=== PATIENT | female | born 1990 | race African-American/Black ===

== ENCOUNTER 2022-05-22 15:14 | Outpatient (CLI) | payer BC, MEDICAID, SELFPAY ==
[2022-05-22 15:44] LABS: Basophils Percent Auto 0.4 % (0.2-1.2); Eosinophils Absolute Auto 0.1 K/mm3 (0-0.3); Eosinophils Percent Auto 1.6 % (0-4.4); Hematocrit 39.1 % (37.0-47.0); Hemoglobin 12.6 g/dL (12.0-15.0); Immature Granulocyte Absolute 0.02 K/mm3 (0.00-0.031); Immature Granulocyte Percent A 0.3 % (0-0.5); Lymphocytes Absolute Auto 2.48 K/mm3 (0.9-3.2); Lymphocytes Percent Auto 33.3 % (18.3-44.2); Mean Corpuscular HGB Conc 32.2 g/dl (32-36); Mean Corpuscular Hemoglobin 28.9 pg (26-34); Mean Corpuscular Volume 89.7 fl (80-100); Mean Platelet Volume 11.3 fl (7.4-10.4); Monocytes Absolute Auto 0.5 K/mm3 (0.1-0.6); Monocytes Percent Auto 6.3 % (2.6-8.5); Neutrophils Absolute Auto 4.3 K/mm3 (1.3-6.7); Neutrophils Percent Auto 58.1 % (45.5-73.1); Platelet Count Result 313 k/mm3 (150-375); Red Blood Count 4.36 M/mm3 (4.2-5.4); White Blood Count 7.5 K/mm3 (4.5-10.0)
[2022-05-22 15:58] LABS: Alanine Aminotransferase 29 U/L (6-35); Albumin Level 4.2 g/dL (3.5-5.1); Alkaline Phosphatase 91 U/L (38-126); Anion Gap 13 mmol/L (8-16); Aspartate Amino Transferase 24 U/L (14-36); Bilirubin,Total 0.3 mg/dL (0.2-1.3); Blood Urea Nitrogen 9 mg/dL (7-17); Carbon Dioxide 22 mmol/L (22-30); Chloride 102 mmol/L (98-107); Estimated Glomerular Filt Rate > 60; Glucose 85 mg/dL (65-110); Potassium 3.6 mmol/L (3.4-5.0); Sodium 137 mmol/L (137-145); Uric Acid 2.3 mg/dL (2.5-7.5)
[2022-05-22 16:08] LABS: Creatinine Urine 97.1 mg/dL
[2022-05-22 16:35] LABS: HIV 1/2 Ab P24 Ag Result Negative (Negative)
[2022-05-22 16:47] LABS: Hepatitis B Surface Antigen Negative (Negative); Rubella IgG Antibody 84.9 IU/ML
[2022-05-22 16:49] LABS: Total Protein Urine Random < 5 mg/dL
[2022-05-23 08:57] LABS: Rapid Plasma Reagin Non-Reactive (NonReactive)
== END 2022-05-22 15:15 | disposition home or self-care (01) ==
LOC: ANHLAB 15:19
PROVIDERS: PCP Emergency Medicine; Visit Provider Student in an Organized Health Care Education/Training Program
DX: N94.89 Other specified conditions associated with female genital organs and menstrual cycle (principal); E66.01 Morbid (severe) obesity due to excess calories; Z98.84 Bariatric surgery status; Z87.59 Personal history of other complications of pregnancy, childbirth and the puerperium
CPT/HCPCS: 36415; 80053; 81050; 82570; 83036; 84156; 84550; 84702; 85025; 86592; 86644; 86703; 86747; 86762; 86787; 86850; 86900; 86901; 87086; 87088; 87340; G0432

== ENCOUNTER 2022-06-19 17:42 | Emergency (ER) | payer BC, MEDICAID, SELFPAY ==
[2022-06-19 17:49] VITALS: BP 138/73; PULSE 76; RESP 18; TEMP 36.7; O2SAT 100
[2022-06-19 19:17] LABS: Basophils Percent Auto 0.2 % (0.2-1.2); Eosinophils Absolute Auto 0.2 K/mm3 (0-0.3); Eosinophils Percent Auto 2.3 % (0-4.4); Hematocrit 36.6 % (37.0-47.0); Hemoglobin 12.2 g/dL (12.0-15.0); Immature Granulocyte Absolute 0.02 K/mm3 (0.00-0.031); Immature Granulocyte Percent A 0.2 % (0-0.5); Lymphocytes Percent Auto 32.6 % (18.3-44.2); Mean Corpuscular HGB Conc 33.3 g/dl (32-36); Mean Corpuscular Hemoglobin 29.3 pg (26-34); Mean Corpuscular Volume 87.8 fl (80-100); Mean Platelet Volume 11.1 fl (7.4-10.4); Monocytes Absolute Auto 0.6 K/mm3 (0.1-0.6); Monocytes Percent Auto 6.7 % (2.6-8.5); Neutrophils Absolute Auto 5.3 K/mm3 (1.3-6.7); Platelet Count Result 272 k/mm3 (150-375); Red Blood Count 4.17 M/mm3 (4.2-5.4); Red Cell Distribution Width 12.9 % (11.5-14.5); White Blood Count 9.2 K/mm3 (4.5-10.0)
--- NOTE | 2022-06-19 21:40 | ED.PREGNANCY ---
HPI - General Chief complaint: Vaginal Bleeding Stated complaint: 13 weeks preg, vag bleeding Time Seen by Provider: 06/19/22 21:19 History of Present Illness HPI Narrative: This is a 32-year-old female G4, P3 with past medical history of preeclampsia, presenting to the emergency department with vaginal bleeding beginning this afternoon. The patient states she went to use the restroom and noted painless vaginal bleeding. She denies passage of clots, abdominal pain, fevers or chills. She states she has not had bleeding with pregnancies before. She has no other complaints today. Related Data Home Medications Medication Instructions Recorded Confirmed ferrous sulfate 325 mg (65 mg 325 mg PO DAILY 05/22/22 iron) tablet mecobalamin (vitamin B12) 1,000 1,000 mcg PO DAILY 05/22/22 mcg chewable tablet omeprazole 20 mg capsule,delayed 20 mg PO DAILY 05/22/22 release valacyclovir 500 mg tablet 500 mg PO DAILY 05/22/22 Allergies Allergy/AdvReac Type Severity Reaction Status Date / Time No Known Allergies Allergy Verified 05/22/22 14:09 Review of Systems Review of Systems: CONSTITUTIONAL: Denies fever, chills, or sweats. EYES: Denies visual changes, redness, or discharge. ENT: Denies rhinorrhea, congestion, sore throat, or otalgia. CARDIOVASCULAR: Denies chest pain, palpitations, or edema. RESPIRATORY: Denies cough or dyspnea. GASTROINTESTINAL: Denies abdominal pain, nausea, vomiting, or diarrhea. GENITOURINARY: Painless vaginal bleeding denies dysuria or hematuria. SKIN: Denies rash or itching. MUSCULOSKELETAL: Denies back pain, joint pain, or myalgia. NEUROLOGIC: Denies headache, numbness, dizziness, or weakness. PSYCHIATRIC: Denies anxiety or depression. [facility] Past Medical History Medical History Kidney stones surgery to remove Suppression of menstruation Surgical History Surgical History Delivery by section x 3 History of gastric bypass (~07/2021) History of gynecological procedure mirena iud removal History of lung surgery x 3 lung punctured during kidney stone removal surgery Family History Family History Other Unknown family medical history Social History Social History Smoking status: Never smoker Alcohol intake: never Substance use: never Substance use type: does not use Additional living arrangements comments: engaged Additional occupation/education comments: [employer] supervisor Gender identity (if verbalized by the patient): Female Sexual Orientation (if Verbalized by the Patient): Straight or Heterosexual Exam Narrative: GENERAL: Well-appearing, well-nourished, and in no acute distress. HEAD: Normocephalic, atraumatic. EYES: PERRLA and EOMI. ENT: Nares clear, no rhinorrhea or epistaxis. Mucous membranes moist. Oropharynx without tonsillar hypertrophy exudate or other lesions. NECK: Supple. No adenopathy or masses. No carotid bruits or JVD CHEST: Clear to auscultation. No respiratory distress. No wheezes rales or rhonchi HEART: Regular rate and rhythm. No murmur heard. Normal peripheral pulses. ABDOMEN: Soft, obese, well-healed surgical scars on abdomen, nontender, nondistended, normal active bowel sounds. PELVIC: (Chaperoned by female RN Ruth), blood noted in the vaginal vault, no noted products of conception, cervical os appears closed, no other abnormal discharge noted, mucosal tissue appears normal EXTREMITIES: Normal range of motion. No edema. SKIN: Warm, dry, no rash. NEURO: No focal deficits. Alert and oriented x3. PSYCH: Normal mood and affect. Course Course Emergency Course: 21:50 - Bedside ultrasound shows an intrauterine with normal movement and normal heart rate
[2022-06-19 23:07] LABS: Appearance Urine Slightly Cloudy (Clear); Bilirubin Urine 1+ (Negative); Blood Urine 2+ (Negative); Color Urine Amber (Yellow); Glucose Urine UA Negative (Negative); Ketones Urine Negative (Negative); Leukocyte Esterase Ur Negative LEU/UL (Negative); Nitrate Urine Negative (Negative); Protein Urine Negative (Negative); Specific Grav Ur 1.025 (1.001-1.035)
[2022-06-19 23:18] LABS: Bacteria Urine Trace /hpf; Mucus Urine Heavy /lpf; RBC Urine 0-2 /hpf (0-2); Squamous Epithelial Cell Urine Rare /hpf (Few); WBC Urine 0-3 /hpf
[2022-06-19 23:23] LABS: Add Urine Microscopic? YES
[2022-06-19 23:29] VITALS: BP 111/52; PULSE 60; RESP 18; O2SAT 96
== END 2022-06-20 00:10 | disposition home or self-care (01) ==
PROVIDERS: Emergency Medicine; Emergency Provider Preventive Medicine Aerospace Medicine; PCP Emergency Medicine
DX: O20.9 Hemorrhage in early pregnancy, unspecified (principal); Z87.442 Personal history of urinary calculi; Z98.84 Bariatric surgery status; Z3A.13 13 weeks gestation of pregnancy
CPT/HCPCS: 36415; 81001; 84702; 85025; 85461; 86850; 86900; 86901; 99284

== ENCOUNTER 2022-08-01 14:54 | Outpatient (RCR) | payer BC, SELFPAY ==
[2022-08-01 15:00] VITALS: BMI 47.6
== END 2022-10-23 13:49 | disposition home or self-care (01) ==
LOC: ANHDMC 14:54
PROVIDERS: PCP Emergency Medicine
DX: O99.840 Bariatric surgery status complicating pregnancy, unspecified trimester (principal); R63.4 Abnormal weight loss; Z71.3 Dietary counseling and surveillance
CPT/HCPCS: 97802

== ENCOUNTER 2022-09-08 10:02 | Emergency (ER) | payer BC, SELFPAY ==
[2022-09-08 10:55] VITALS: BP 147/81; PULSE 88; RESP 20; TEMP 36.5; O2SAT 100
--- NOTE | 2022-09-08 13:53 | PC.NURSE ---
Patient did not answer page for registration.
== END 2022-09-08 14:04 | disposition left against medical advice (07) ==
PROVIDERS: PCP Student in an Organized Health Care Education/Training Program
DX: R10.9 Unspecified abdominal pain (principal)
CPT/HCPCS: 99199

== ENCOUNTER 2022-10-10 12:38 | Outpatient (CLI) | payer BC, SELFPAY ==
[2022-10-10 13:01] LABS: Basophils Percent Auto 0.2 % (0.2-1.2); Eosinophils Absolute Auto 0.1 K/mm3 (0-0.3); Eosinophils Percent Auto 1.3 % (0-4.4); Hemoglobin 11.5 g/dL (12.0-15.0); Immature Granulocyte Absolute 0.03 K/mm3 (0.00-0.031); Immature Granulocyte Percent A 0.4 % (0-0.5); Lymphocytes Absolute Auto 1.79 K/mm3 (0.9-3.2); Lymphocytes Percent Auto 21.2 % (18.3-44.2); Mean Corpuscular HGB Conc 32.9 g/dl (32-36); Mean Corpuscular Hemoglobin 29.5 pg (26-34); Mean Corpuscular Volume 89.7 fl (80-100); Mean Platelet Volume 10.7 fl (7.4-10.4); Monocytes Absolute Auto 0.7 K/mm3 (0.1-0.6); Monocytes Percent Auto 7.9 % (2.6-8.5); Neutrophils Absolute Auto 5.8 K/mm3 (1.3-6.7); Platelet Count Result 283 k/mm3 (150-375); Red Cell Distribution Width 12.8 % (11.5-14.5); White Blood Count 8.4 K/mm3 (4.5-10.0)
[2022-10-10 13:53] LABS: HIV 1/2 Ab P24 Ag Result Negative (Negative)
== END 2022-10-10 12:39 | disposition home or self-care (01) ==
LOC: ANHLAB 12:39
PROVIDERS: PCP Student in an Organized Health Care Education/Training Program; Visit Provider Obstetrics & Gynecology
DX: Z34.90 Encounter for supervision of normal pregnancy, unspecified, unspecified trimester (principal); Z3A.00 Weeks of gestation of pregnancy not specified
CPT/HCPCS: 36415; 85025; 86703; G0432

== ENCOUNTER 2022-12-20 05:33 | Inpatient (IN) | payer BC, MEDICAID, SELFPAY ==
[2022-12-20] VITALS (50 sets, daily range): BP systolic 78–160; BP diastolic 45–113; PULSE 48–101; RESP 13–18; TEMP 36.3–37.2; O2SAT 96–100; BMI 49.6
[2022-12-20 06:26] LABS: Basophils Percent Auto 0.3 % (0.2-1.2); Eosinophils Absolute Auto 0.2 K/mm3 (0-0.3); Eosinophils Percent Auto 1.8 % (0-4.4); Hematocrit 32.5 % (37.0-47.0); Hemoglobin 10.5 g/dL (12.0-15.0); Immature Granulocyte Absolute 0.03 K/mm3 (0.00-0.031); Immature Granulocyte Percent A 0.3 % (0-0.5); Lymphocytes Absolute Auto 1.92 K/mm3 (0.9-3.2); Mean Corpuscular HGB Conc 32.3 g/dl (32-36); Mean Corpuscular Hemoglobin 29.2 pg (26-34); Mean Corpuscular Volume 90.5 fl (80-100); Mean Platelet Volume 10.8 fl (7.4-10.4); Monocytes Absolute Auto 0.8 K/mm3 (0.1-0.6); Monocytes Percent Auto 9.3 % (2.6-8.5); Neutrophils Absolute Auto 5.8 K/mm3 (1.3-6.7); Neutrophils Percent Auto 66.3 % (45.5-73.1); Platelet Count Result 265 k/mm3 (150-375); Red Blood Count 3.59 M/mm3 (4.2-5.4); Red Cell Distribution Width 12.6 % (11.5-14.5); White Blood Count 8.7 K/mm3 (4.5-10.0)
[2022-12-20] MEDS: LACTATED RINGERS 1,000 ML 125 ML IV CONT ×2 (06:35→07:31)
--- NOTE | 2022-12-20 06:41 | LDADM ---
This patient, Gagandeep Kay, was admitted to Labor/Delivery/Recovery 119 on 12/20/22 at 05:33. Plans for labor, pain management and were discussed with patient. Patient/family oriented to hospital policies and general routines including ID bracelet, bed and alarms, visiting hours, pain management, procedures, bathroom and other care routines, personal items, smoking policy, room service/diet and guest tray routines, security routines, and visiting hours. Patient/Family are encouraged to report perceived risks to care and to ask questions if they do not understand what they are told or what they should do. See OBIX for further documentation.
--- NOTE | 2022-12-20 07:04 | WPDANESEPPF ---
Anes - Initial Pre Proc Eval Procedure: Operation Date: 12/20/22 07:30 Proposed Procedures p Repeat Section with Tubal Ligation - Pola Batista MD Date/Time: 12/20/22 07:04 Surgeon: Pola Batista MD Pre Op Diagnosis: r c/s Patient Data Age: 32 Gender: F Height: 1.57 m Weight: 123 kg Last Vital Signs Pulse 64 12/20/22 07:01 BP 105/73 12/20/22 07:01 O2 Del Method Room Air 12/20/22 06:40 Allergies Allergy/AdvReac Type Severity Reaction Status Date / Time No Known Allergies Allergy Verified 12/12/22 13:25 Home Medications Medication Instructions Recorded Confirmed Type ferrous sulfate 325 mg (65 mg 325 mg PO DAILY 05/22/22 12/20/22 History iron) tablet mecobalamin (vitamin B12) 1,000 1,000 mcg PO DAILY 05/22/22 12/20/22 History mcg chewable tablet omeprazole 20 mg capsule,delayed 20 mg PO DAILY 05/22/22 12/20/22 History release valacyclovir 500 mg tablet 500 mg PO DAILY 05/22/22 12/20/22 History prenat.vits,dominick,[id number] 1 tablet PO DAILY 06/20/22 12/20/22 History aspirin 81 mg tablet,delayed 81 mg PO DAILY 09/12/22 12/20/22 History release (Adult Low Dose Aspirin) Laboratory Tests 12/20/22 06:11 WBC 8.7 K/mm3 (4.5-10.0) RBC 3.59 L M/mm3 (4.2-5.4) Hgb 10.5 L g/dL (12.0-15.0) Hct 32.5 L % (37.0-47.0) MCV 90.5 fl (80-100) MCH 29.2 pg (26-34) MCHC 32.3 g/dl (32-36) RDW 12.6 % (11.5-14.5) Plt Count 265 k/mm3 (150-375) MPV 10.8 H fl (7.4-10.4) Immature Gran % (Auto) 0.3 % (0-0.5) Neut % (Auto) 66.3 % (45.5-73.1) Lymph % (Auto) 22.0 % (18.3-44.2) [place] % (Auto) 9.3 H % (2.6-8.5) Eos % (Auto) 1.8 % (0-4.4) Baso % (Auto) 0.3 % (0.2-1.2) Lymph # (Auto) 1.92 K/mm3 (0.9-3.2) [place] # (Auto) 0.8 H K/mm3 (0.1-0.6) Eos # (Auto) 0.2 K/mm3 (0-0.3) Baso # (Auto) 0.0 K/mm3 (0.0-0.1) Abs Immat Gran (auto) 0.03 K/mm3 (0.00-0.031) Absolute Neuts (auto) 5.8 K/mm3 (1.3-6.7) Absolute Nucleated RBC 0.0 K/mm3 (0.0-0.012) Nucleated RBC % 0.0 % (0.0-0.2) RPR Pending Patient hx anesthesia problems: none Family hx anesthesia problems: none Results Review: All pre-operative results and documents have been reviewed as part of the pre-operative evaluation. [facility] Past Medical History Medical History Kidney stones surgery to remove Suppression of menstruation Vaginitis Surgical History Surgical History Delivery by section x 3 History of gastric bypass (~07/2021) History of gynecological procedure mirena iud removal History of lung surgery x 3 lung punctured during kidney stone removal surgery Family History Family History Other Unknown family medical history Social History Social History Smoking status: Never smoker Alcohol intake: never Substance use: never Substance use type: does not use Lack of Transportation: No Lack of Food: Never True Current Housing: I Have Housing Concerned About Future Housing: No Difficulty Paying Gas/Electric Bills: No Difficulty Paying for Meds: No Currently Unemployed: No Education: High School Diploma/GED Difficulty w/ Childcare or Family Care: No Living arrangements: other Additional living arrangements comments: engaged Occupation/Education: occupation 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
--- NOTE | 2022-12-20 07:17 | PM.IMHP ---
H&P: HPI History of Present Illness Date/Time: 12/20/22 07:17 Chief Complaint: intrauterine at term prior desires permanent sterilization class 3 obesity history of preeclampsia Narrative: 32 yo at 39w0d who presents for repeat . Review of Systems Cardiovascular: Cardiovascular: Denies chest pain, Denies leg edema, Denies palpitations, Denies dyspnea and Denies dyspnea on exertion Respiratory: Respiratory: Denies cough, Denies dyspnea and Denies dyspnea on exertion Gastrointestinal: Gastrointestinal: Denies abdominal pain, Denies constipation, Denies diarrhea, Denies nausea and Denies vomiting Genitourinary: Genitourinary: Denies hematuria, Denies urinary frequency, Denies dysuria, Denies pelvic pain, Denies urinary incontinence and Denies vaginal discharge Neurologic: Reports system reviewed and no additional complaints, except as documented Psychiatric: Psychiatric: Reports no additional psychiatric complaints Endocrine: Endocrine: Denies palpitations PMFSH Past Medical History Medical History Kidney stones surgery to remove Suppression of menstruation Vaginitis Surgical History Surgical History Delivery by section x 3 History of gastric bypass (~07/2021) History of gynecological procedure mirena iud removal History of lung surgery x 3 lung punctured during kidney stone removal surgery Family History Family History Other Unknown family medical history Social History Social History Smoking status: Never smoker Alcohol intake: never Substance use: never Substance use type: does not use Lack of Transportation: No Lack of Food: Never True Current Housing: I Have Housing Concerned About Future Housing: No Difficulty Paying Gas/Electric Bills: No Difficulty Paying for Meds: No Currently Unemployed: No Education: High School Diploma/GED Difficulty w/ Childcare or Family Care: No Living arrangements: other Additional living arrangements comments: engaged Occupation/Education: occupation 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 Gender identity (if verbalized by the patient): Female Sexual Orientation (if Verbalized by the Patient): Straight or Heterosexual Spiritual care concerns: No Meds Home Medications and Allergies Home Medications Medication Instructions Recorded Confirmed Type ferrous sulfate 325 mg (65 mg 325 mg PO DAILY 05/22/22 12/20/22 History iron) tablet mecobalamin (vitamin B12) 1,000 1,000 mcg PO DAILY 05/22/22 12/20/22 History mcg chewable tablet omeprazole 20 mg capsule,delayed 20 mg PO DAILY 05/22/22 12/20/22 History release valacyclovir 500 mg tablet 500 mg PO DAILY 05/22/22 12/20/22 History prenat.vits,dominick,yia-golk-xgaaz 1 tablet PO DAILY 06/20/22 12/20/22 History aspirin 81 mg tablet,delayed 81 mg PO DAILY 09/12/22 12/20/22 History release (Adult Low Dose Aspirin) Allergies Allergy/AdvReac Type Severity Reaction Status Date / Time No Known Allergies Allergy Verified 12/12/22 13:25 Vital Signs Vital Signs - 24 hr 12/20/22 06:32 12/20/22 06:47 12/20/22 07:01 Temperature Pulse Rate 68 64 64 Respiratory Rate Blood Pressure 117/67 78/61 L 105/73 Oxygen Delivery 12/20/22 07:00 12/20/22 06:40 Temperature 97.4 F L Pulse Rate Respiratory Rate 17 Blood Pressure Oxygen Delivery Room Air Exam Const: General: no acute distress Eyes: EOM: EOMs intact bilaterally Neck: Neck: supple Thyroid: thyroid normal Chest: Breast/axilla inspection: normal inspection of the breasts Breast/axilla palpation: normal palpation of the breasts, normal palpation of the axillae and no axillary lym
[2022-12-20] MEDS: ceFAZolin 3 GM/D5W 100 ML 100 ML IVPB (07:30)
--- NOTE | 2022-12-20 08:48 | W.PM.PROC2 ---
Procedure Note - Detailed Date of Procedure 12/20/22 Pre-op Diagnosis intrauterine at term prior x3 desires permanent sterilization history of preeclampsia obesity Post-op Diagnosis Same Procedure Performed repeat low transverse section bilateral salpingectomy Surgeon Pola Batista MD Anesthesia Spinal and Epidural Findings dense adhesive disease between the anterior uterine serosa and the anterior abdominal wall Description of Procedure The patient was taken to the operating room. A combined spinal epidural anesthesic was administered and found to be adequate at a t-10 level. The patient was placed in a supine position with a slight left lateral tilt. A harris catheter was placed with return of clear urine. A Bovie grounding pad was placed. Surgical prep was performed and surgical drapes were placed. A surgical time out was performed. A Pfannenstiel skin incision was then made with the scalpel and carried through to the underlying layer of fascia. The fascia was then incised in the midline and the incision was extended laterally with the Griffin scissors. The superior aspect of the fascia was then grasped with the Jeancarlos clamps, elevated, and the underlying rectus muscles dissected off bluntly and sharply. Attention was then turned to the inferior aspect of this incision which, in a similar fashion, was grasped, tented up with the Jeancarlos clamps, and the rectus muscles dissected off both bluntly and sharply. The rectus muscles were then in the midline. The peritoneum was identified. Dense scarring was noted at the level of the peritoneum. The peritoneum was tented up and entered sharply. The peritoneal incision was then extended superiorly and inferiorly with good visualization of the bladder. The anterior uterine serosa was noted to be densely adherent to the anterior abdominal wall. These adhesions were taken down with bovie cautery. Once the uterus was cleared of all adhesions, an kim retractor was placed for better visualization. The uterus was inspected for rotation. A low-transverse uterine incision was made sharply with the scalpel and entry was made into the uterine cavity. An amniotomy was made and copious amounts of clear fluid were noted on return. The uterine incision was extended laterally bluntly. The fetus was delivered atraumatically. The nose and mouth were suctioned with a bulb syringe. The umbilical cord was clamped twice and cut. The infant was handed off to the waiting staff. At the time of the delivery, the had good color, tone and grimace. The infant cried with minimal stimulation. A second segment of umbilical cord was clamped and cut for cord blood gasses. Cord blood was collected for determination of the blood type and for direct Sykes. The placenta was delivered manually without difficulty. The placenta appeared grossly normal and complete. The uterus was exteriorized and cleared of all clots and debris. The uterine incision was repaired using 0-monocryl suture in a running fashion. A second layer of 0 Monocryl suture was used in an imbricating fashion to obtain excellent hemostasis and uterine strength. There were several areas of the uterine serosa that were oozing. These spots were made hemostatic with figure of eight sutures of 0-monocryl, Bovie cautery, and hemaderm. The uterine closure was inspected for hemostasis. The posterior aspect of the uterus and the broad ligaments were inspected and the posterior cul-de-sac cleared of fluid and blood clots. The uterine closure was again inspected and found to be hemostatic. The uterus was returned to the abdominal cavity. The pericolic gutters were inspected and were cleared of all blood clots and debris. The uterine closure was then re inspected to ensure hemostasis as were all subfascial tissues. The peritoneum was closed using 3-0 vicryl in a running fashion. The fascia was reapproximated with 0-vicryl in a running fashion.
[2022-12-20] MEDS: OXYTOCIN 30 UNITS/NS 500 ML 30 UNITS/500 ML BAG 125 UNITS IV CONT (10:25)
[2022-12-20 10:57] LABS: Rapid Plasma Reagin Non-Reactive (NonReactive)
--- NOTE | 2022-12-20 11:05 | PC.NURSE ---
Patient transferred to post room #291 via (stretcher ). Support person present. Oriented to unit, room, information board, rooming in, admission packet and security measures. Patient verbalizes understanding.
[2022-12-20] MEDS: LORATADINE 10 MG TABLET PO (11:45)
[2022-12-20] MEDS: ACETAMINOPHEN 325 MG TABLET 650 MG PO (14:47)
[2022-12-20] MEDS: DEXTROSE 5%/0.45% SOD CHL 1,000 ML 125 ML IV CONT (14:48)
[2022-12-20] MEDS: DOCUSATE SODIUM 100 MG CAPSULE PO (17:06)
[2022-12-20] MEDS: IBUPROFEN 600 MG TABLET PO (21:29)
[2022-12-21 04:15] VITALS: BP 124/75; PULSE 63; RESP 16; TEMP 36.7; O2SAT 98
[2022-12-21] MEDS: HYDROcodone/acetaminophen (*CRX) 5-325 MG TABLET 1 TAB PO ×6 (04:23→22:32)
[2022-12-21 05:11] LABS: Basophils Percent Auto 0.2 % (0.2-1.2); Eosinophils Absolute Auto 0.1 K/mm3 (0-0.3); Eosinophils Percent Auto 1.4 % (0-4.4); Hematocrit 29.6 % (37.0-47.0); Hemoglobin 9.5 g/dL (12.0-15.0); Immature Granulocyte Absolute 0.04 K/mm3 (0.00-0.031); Immature Granulocyte Percent A 0.4 % (0-0.5); Lymphocytes Absolute Auto 1.63 K/mm3 (0.9-3.2); Lymphocytes Percent Auto 17.2 % (18.3-44.2); Mean Corpuscular HGB Conc 32.1 g/dl (32-36); Mean Corpuscular Hemoglobin 28.4 pg (26-34); Mean Corpuscular Volume 88.4 fl (80-100); Mean Platelet Volume 11.4 fl (7.4-10.4); Monocytes Percent Auto 10.1 % (2.6-8.5); Neutrophils Absolute Auto 6.7 K/mm3 (1.3-6.7); Neutrophils Percent Auto 70.7 % (45.5-73.1); Platelet Count Result 239 k/mm3 (150-375); Red Blood Count 3.35 M/mm3 (4.2-5.4); Red Cell Distribution Width 12.3 % (11.5-14.5); White Blood Count 9.5 K/mm3 (4.5-10.0)
[2022-12-21 08:00] VITALS: PULSE 62; RESP 18; O2SAT 100
[2022-12-21] MEDS: IBUPROFEN 600 MG TABLET PO ×3 (08:42→22:31)
[2022-12-21] MEDS: FERROUS SULFATE 324 MG TABLET PO (08:42)
[2022-12-21] MEDS: DOCUSATE SODIUM 100 MG CAPSULE PO (08:42)
[2022-12-21] MEDS: MULTIVIT/MIN/PREN/FOL AC/IRON TABLET 1 TAB PO (08:42)
[2022-12-21 08:50] VITALS: BP 135/76; PULSE 62; RESP 18; TEMP 37.1; O2SAT 100
--- NOTE | 2022-12-21 11:04 | WPDANLDNPN2 ---
Anes-Prog Note L&D-Neuraxial Date/Time: 12/21/22 11:04 Neuraxial medications: intrathecal PF morphine Opiod-related complaints: none Patient feedback: Patient satisfied with post-operative pain management.
--- NOTE | 2022-12-21 11:05 | P.PNAN_ITS ---
Anes - Prog Note Post-Op Date/Time: 12/21/22 11:05 Cardiovascular status: normal Respiratory status: normal Airway patency: baseline Mental status: baseline Post-Op hydration status: normal Vital Signs: Last Vital Signs Temp 37.1 C 12/21/22 08:50 Pulse 62 12/21/22 08:50 Resp 18 12/21/22 08:50 BP 135/76 12/21/22 08:50 Pulse Ox 100 12/21/22 08:50 O2 Del Method Room Air 12/21/22 04:15 Pain Score (VAS): 3 I/O: Intake & Output 12/20/22 12/21/22 12/21/22 23:59 07:59 15:59 Intake Total 400 Output Total 400 1200 Balance 0 -1200 Laboratory Tests 12/21/22 04:19 12/21/22 04:19 WBC 9.5 RBC 3.35 L Hgb 9.5 L Hct 29.6 L MCV 88.4 MCH 28.4 MCHC 32.1 RDW 12.3 Plt Count 239 MPV 11.4 H Immature Gran % (Auto) 0.4 Neut % (Auto) 70.7 Lymph % (Auto) 17.2 L [place] % (Auto) 10.1 H Eos % (Auto) 1.4 Baso % (Auto) 0.2 Lymph # (Auto) 1.63 [place] # (Auto) 1.0 H Eos # (Auto) 0.1 Baso # (Auto) 0.0 Abs Immat Gran (auto) 0.04 H Absolute Neuts (auto) 6.7 Absolute Nucleated RBC 0.0 Nucleated RBC % 0.0 Post-procedural complaints: none Patient Feedback: Patient satisfied with anesthetic care.
[2022-12-21] MEDS: PANTOPRAZOLE 40 MG TABLET PO (15:45)
--- NOTE | 2022-12-21 16:46 | PC.NURSE ---
[id number] Introductions were made, then consulted with patient to assess needs related to . Mother led the conversation with her?plans to feed?her infant and the?experience so far. Resources provided for inpatient and outpatient services with the name written on the white board. Mother voiced understanding of information, states she has Jolanta with the [facility] office to work with and has reached out to her already, and will call if there is a request for assistance. Reported to the primary RN.
[2022-12-21 19:30] VITALS: BP 123/80; PULSE 60; RESP 16; TEMP 37.1; O2SAT 100
[2022-12-21] MEDS: SIMETHICONE 80 MG TAB.CHEW PO (19:44)
[2022-12-22] MEDS: HYDROcodone/acetaminophen (*CRX) 5-325 MG TABLET 1 TAB PO ×5 (04:29→23:25)
[2022-12-22] MEDS: IBUPROFEN 600 MG TABLET PO ×3 (04:29→19:44)
--- NOTE | 2022-12-22 07:49 | PM.OBDSVD ---
DS: Admitting Diagnosis Discharge Date 12/23/2022 Admitting Diagnosis DS: Discharge Diagnosis Discharge Diagnosis (1) , delivered: Code(s): O80 - Encounter for full-term uncomplicated delivery Status: Acute OB - DS: Summary OB Procedures : None OB Procedures Intrapartum: OB Procedures: : None Peripartum Data Procedures: Procedures Operation Date: 12/20/22 07:30 Actual Procedure Side Surgeon p Repeat Section with Tubal Ligation Bilateral Pola Batista MD Time Spent with Patient Time attestation: Total time spent providing and/or coordinating discharge services: DS: Data Data Completed and Pending Pending studies at discharge: Pending at discharge 12/20/22 09:11 Surgical [PTH] Routine Discharge Plan Discharge Discharging Clinician: Jose Francisco Douglas Patient Disposition: Home, Self-Care Activity: may shower, no straining, no driving and pelvic rest Diet: as tolerated Wound Care Instructions: incision open to air Patient Instructions: Antibiotic Form Stand Alone Forms: General Discharge Information Follow-up/Referrals: Pola Batista MD [Physician] - 1 Week Discharge Medications: New hydrocodone-acetaminophen 5-325 mg Tablet 1 tablet PO Q3H PRN (Reason: Moderate Pain (4-6)) Qty: 30 0RF ibuprofen 600 mg Tablet 600 mg PO Q6H PRN (Reason: Cramping) Qty: 30 0RF Continued omeprazole 20 mg capsule,delayed release(DR/EC) 20 mg PO DAILY ferrous sulfate 325 mg (65 mg iron) tablet 325 mg PO DAILY prenat.vits,dominick,[id number] Tablet 1 tablet PO DAILY Discontinued valacyclovir 500 mg tablet 500 mg PO DAILY mecobalamin (vitamin B12) 1,000 mcg tablet,chewable 1,000 mcg PO DAILY aspirin [Adult Low Dose Aspirin] 81 mg tablet,delayed release (DR/EC) 81 mg PO DAILY Date of admission: 12/20/22 05:33 Primary Care Provider: PHYSICIAN NOT ON STAFF,NONSTAFF Admitting Provider: Pola Batista Attending physician on admission: Pola Batista Condition: Stable
[2022-12-22 08:00] VITALS: BP 116/72; PULSE 54; RESP 18; TEMP 37; O2SAT 100
[2022-12-22] MEDS: PANTOPRAZOLE 40 MG TABLET PO (09:56)
[2022-12-22] MEDS: DOCUSATE SODIUM 100 MG CAPSULE PO ×2 (09:56→15:45)
[2022-12-22] MEDS: FERROUS SULFATE 324 MG TABLET PO (09:56)
[2022-12-22] MEDS: MULTIVIT/MIN/PREN/FOL AC/IRON TABLET 1 TAB PO (09:56)
[2022-12-22] MEDS: SIMETHICONE 80 MG TAB.CHEW PO ×3 (09:57→23:25)
[2022-12-22 20:36] VITALS: BP 133/81; PULSE 64; RESP 18; TEMP 36.6; O2SAT 100
[2022-12-23] MEDS: IBUPROFEN 600 MG TABLET PO ×2 (03:37→09:15)
[2022-12-23] MEDS: HYDROcodone/acetaminophen (*CRX) 5-325 MG TABLET 1 TAB PO ×2 (03:38→07:17)
[2022-12-23] MEDS: SIMETHICONE 80 MG TAB.CHEW PO (03:38)
[2022-12-23 08:00] VITALS: BP 117/70; PULSE 61; RESP 16; TEMP 36.4; O2SAT 100
[2022-12-23] MEDS: DOCUSATE SODIUM 100 MG CAPSULE PO (09:13)
[2022-12-23] MEDS: MULTIVIT/MIN/PREN/FOL AC/IRON TABLET 1 TAB PO (09:15)
[2022-12-23] MEDS: FERROUS SULFATE 324 MG TABLET PO (09:15)
[2022-12-23] MEDS: PANTOPRAZOLE 40 MG TABLET PO (09:15)
[2022-12-23] MEDS: ACETAMINOPHEN 325 MG TABLET 650 MG PO (12:44)
--- NOTE | 2022-12-23 14:57 | PC.NURSE ---
Pt called and stated [facility] informed her that her rx for Hyde was on backorder and that they havent had a chance to fill her rx for IBU. Pt requested her rx be sent to [facility] in [place] on [address]. CARLY Castano called and requested Dr. Garibay send rx over to [facility] preferred pharmacy. Dr. Garibay stated she would send over rx.
[2022-12-26 09:16] VITALS: BP 142/72; PULSE 55; RESP 18; TEMP 36.8; O2SAT 100
== END 2022-12-23 14:14 | disposition home or self-care (01) | DRG 768 ==
LOC: ANHOB2 12-21 09:10 → ANHLDR 12-26 07:14 → ANHOB2 12-26 07:14
PROVIDERS: Admitting Provider Student in an Organized Health Care Education/Training Program; Visit Provider Obstetrics & Gynecology
PROC: 10E0XZZ Delivery of Products of Conception, External Approach (ICD-10-PCS; CPT 59514; principal; 2022-12-20 07:30)
DX: O34.219 Maternal care for unspecified type scar from previous cesarean delivery (principal); Z37.0 Single live birth; Z30.2 Encounter for sterilization; O99.844 Bariatric surgery status complicating childbirth; O99.214 Obesity complicating childbirth; E66.01 Morbid (severe) obesity due to excess calories; Z3A.39 39 weeks gestation of pregnancy; N73.6 Female pelvic peritoneal adhesions (postinfective); Z79.82 Long term (current) use of aspirin
CPT/HCPCS: 36415; 85025; 86592; 86850; 86900; 86901; 88302; A9270; J0131; J0690; J1885; J2250; J2274; J2405; J2590; J7120